=== PATIENT | male | born 1970 | race Caucasian/White ===

== ENCOUNTER 2018-01-21 07:55 | Emergency (ER) | payer BC, MEDICAID ==
[2018-01-21] MEDS: IPRATROPIUM/ALBUTEROL (0.5MG/3MG) NEB INH ONE (08:05)
--- NOTE | 2018-01-21 08:08 | Emergency Department Record ---
History of Present Illness - General Chief complaint: Hives Stated complaint: HIVES Time Seen by Provider: 01/21/18 08:00 Source: Patient Mode of Arrival: Ambulatory Limitations: No limitations - History of Present Illness Initial comments: 47 yo male presents with hives and mild wheezing. He was stung by an [place] Dagger M[employer] Caterpiller. He has developed hives and wheezing. He is a smoker with underlying asthma. He did not use his inhaler yet. He was seen at a [facility] and then referred to [facility] ED. He was not treated with steroids due to a Prednisone allergy. He states he has had "steroid shots" without reaction in the past. He additional reports he has been on Medrol tapering dose packs without reaction in the past 1-2 years. No chest pain. The patient was given 0.3mg of Epinephrine at the and in the ED. No other medications given. MD complaint: Insect bite/sting, Rash -: Days(s) (1) Location: Generalized Severity: Moderate Quality: Other (itching) Consistency: Constant Improves with: None Worsens with: Other (Not on steroids and did not use his inhaler) Context: Witnessed insect bite Associated symptoms: Itching Treatments Prior to Arrival: Other - Related Data Home Medications Medication Instructions Recorded Confirmed Last Taken Aspirin [Aspir-Low] 81 mg PO DAILY 01/21/18 01/21/18 01/21/18 Cyclobenzaprine HCl [Flexeril] 10 mg PO ASDIR PRN 01/21/18 01/21/18 Unknown Diazepam [Valium] 10 mg PO QHS PRN 01/21/18 01/21/18 Unknown Fenofibrate,Micronized 134 mg PO DAILY 01/21/18 01/21/18 01/21/18 [Fenofibrate] Hydrocodone/Acetaminophen [[place] 2 each PO BID 01/21/18 01/21/18 Unknown 10-325 Tablet] Metoprolol Succinate 25 mg PO DAILY 01/21/18 01/21/18 01/21/18 Multivitamin [Daily Multiple 1 each PO DAILY 01/21/18 01/21/18 01/21/18 Vitamin] Bimble-3 Fatty Acids/Fish Oil [Fish 1 each PO DAILY 01/21/18 01/21/18 01/21/18 Oil 1,000 mg Capsule] Omeprazole [Prilosec] 20 mg PO DAILY 01/21/18 01/21/18 01/21/18 Vardenafil HCl [Levitra] 20 mg PO NOW PRN 01/21/18 01/21/18 Unknown Previous Rx's Medication Instructions Recorded Epinephrine 0.3 mg IJ ONCE PRN #2 auto.injct 01/21/18 Methylprednisolone [Medrol Dose 4 mg PO DAILY #1 tab.ds.pk 01/21/18 Pack] Ranitidine HCl [Zantac] 150 mg PO BID #20 tablet 01/21/18 Allergies Allergy/AdvReac Type Severity Reaction Status Date / Time penicillin V potassium Allergy Unknown PT UNSURE Unverified 01/21/18 08:15 [From PEN-VEE K] OF REACTION levofloxacin [From Levaquin] AdvReac NAUSEA AND Verified 01/21/18 08:15 VOMITING prednisone AdvReac HYPERSENSIT Verified 01/21/18 08:15 IVITY Review of Systems Constitutional: Denies: Chills, Fever, Malaise, Weakness, Weight change Eyes: Denies: Eye discharge ENT: Denies: Congestion, Throat pain Respiratory: Reports: Dyspnea, Wheezes. Denies: Cough Cardiovascular: Denies: Chest pain, Palpitations, Syncope Endocrine: Denies: Fatigue, Polydipsia, Polyuria Gastrointestinal: Denies: Abdominal pain, Diarrhea, Nausea, Vomiting Genitourinary: Denies: Dysuria, Frequency, Hematuria Musculoskeletal: Denies: Arthralgia, Back pain, Myalgia, Neck pain Skin: Reports: Change in color, Rash. Denies: Bruising Neurological: Denies: Headache Psychiatric: Denies: Anxiety Hematological/Lymphatic: Denies: Blood Clots, Easy bleeding, Easy bruising, Swollen glands Physical Exam - General General Appearance: Alert, Oriented x3, Cooperative, No acute distress, Other ( Calm, no obvious facial, lip, tongue swelling, no conversational dyspnea. Appears relaxed) Limitations: No limitations - Head Head exam: Normal inspection - Eye Eye exam: Normal appearance. negative: Conjunctival injection, Periorbital swelling, Scleral icterus - ENT ENT exam: Normal exam, Mucous membranes moist, Normal orophraynx Ear exam: Normal external inspection Nasal Exam: Normal inspection Mouth exam: Normal external inspection Teeth exam: Normal inspection Throat exam: Normal inspection. negative: Tonsillar erythema, Tonsillomegaly, R peritonsillar mass, L peritonsillar mass - Neck Neck exam: Normal inspection, Full ROM. negative: Lymphadenopathy, Tenderness - Respiratory Respiratory exam: Normal lung sounds bilaterally, Wheezes (mild), Other (Calm relaxed breathing, no conversational dyspnea). negative: Accessory muscle use, Decreased breath sounds, Prolonged expiratory, Respiratory distress, Rhonchi - Cardiovascular Cardiovascular Exam: Regular rate, Normal rhythm, Normal heart sounds - GI/Abdominal GI/Abdominal exam: Soft. negative: Tenderness - Rectal Rectal exam: Deferred - exam: Deferred - Extremities Extremities exam: negative: Normal inspection - Back Back exam: Denies: Normal inspection - Neurological Neurological exam: Alert, Oriented X3 - Psychiatric Psychiatric exam: Normal affect, Normal mood - Skin Skin exam: Dry, Intact, Rash, Urticaria, Warm. negative: Normal color Distribution of rash: Abdomen, Back, Chest, RUE, LUE Description of rash: Urticarial Course - Reevaluation(s) Reevaluation #1: The patient is very clear that he is not allergic to steroid shots. He has had IM solumedrol in the last 1-2 years for poison gladys without any reaction. His Predinsone reaction was a purple rash on the abdomen not anaphylaxis. We discussed the risks and benefits of IM/IV solumedrol. He states he requested in at [facility] but was denied. He is requesting it in the ED this morning as well and states NO prior reaction. 01/21/18 08:24 His breathing remains calm after the Duoneb. The minimal wheeze he had is resolved. 01/21/18 08:27 01/21/18 09:08 The patient is resting comfortably. Tolerated the Solumedrol without immediate reaction. 01/21/18 09:30 BMP reviewed. Glucose 200 01/21/18 10:05 The patient was informed of the BS He is not a diabetic He was informed steroids will increase his glucose temporarily He will need to eat low carbohydrate food, recheck sugars with his PCP. 01/21/18 10:15 I KIESHA Flores his PCP We discussed his hives, glucose and need for close follow up to recheck the sugars. 04/2017 his A1C was 5.7 01/21/18 10:45 We discussed the results of the tests and questions were answered at the time of discharge. The patient is doing well and is comfortable with DC. DC vitals were reviewed. Normal range. His hives were greatly improved. Lungs are clear We discussed at length reasons to immediately return to the ED as well as close follow up. The patient will call the PCP for close follow up of this ED visit to review this visit and the tests performed including follow up glucose Medical Decision Making - Lab Data Result diagrams: 01/21/18 08:35 01/21/18 08:35 Disposition Disposition: Discharge Clinical Impression: Hives Toxic effect of venom of caterpillars, unintentional Qualifiers: Encounter type: initial encounter Qualified Code(s): T63.431A - Toxic effect of venom of caterpillars, accidental (unintentional), initial encounter Disposition: Home, Self-Care Condition: (1) Good Instructions: Urticaria (ED) Additional Instructions: Use your albuterol 2 puffs every 4-6 hours Take 25-50mg Benadryl every 4-6 hours if the hives continue Take the Medrol Dose pack as directed for the next 7 days Return if worse, fever, short of breath or any new concerns You will need to eat low carbohydrate foods as your blood sugar was elevated today You will need to recheck your sugars with your doctor in the next week Prescriptions: Epinephrine 0.3 mg IJ ONCE PRN #2 auto.injct PRN Reason: Anaphylaxis Methylprednisolone [Medrol Dose Pack] 4 mg PO DAILY #1 tab.ds.pk Ranitidine HCl [Zantac] 150 mg PO BID #20 tablet Forms: Patient Portal Access Time of Disposition: 11:04 Quality - Quality Measures Quality Measures: N/A - Blood Pressure Screening Does Patient Have Any of the Following: No Blood Pressure Classification: Normal BP Reading Systolic Measurement: 110 Diastolic Measurement: 61 Screening for High Blood Pressure: < Normal BP, F/U Not Required > [G8783]
[2018-01-21] MEDS: SODIUM CHLORIDE 0.9% 500 ML IV ONE (08:10)
[2018-01-21] MEDS: DIPHENHYDRAMINE HCL 50 MG/ML VIAL IVP ONE (08:10)
[2018-01-21] MEDS: METHYLPREDNISOLONE PF 125MG/VIAL IVP ONE (08:36)
[2018-01-21] MEDS: RANITIDINE HCL 50 MG in 0.9 % SODIUM CHLORIDE 100ML 100 ML IVPB ONE (08:37)
[2018-01-21 08:49] LABS: HEMOGLOBIN 17.8 gm/dl (14.0-18.0); MEAN PLATELET VOLUME 9.7 fl (7.4-10.4); PLATELET COUNT 342 K/uL (130-400); RED CELL DISTRIBUTION WIDTH 13.9 % (11.5-14.5)
[2018-01-21 08:51] LABS: MEAN CORPUSCULAR HEMOGLOBIN 29.6 pg (27-33)
[2018-01-21 08:57] LABS: PLATELET ESTIMATE NORMAL (NORMAL)
[2018-01-21 09:02] LABS: BLOOD UREA NITROGEN 11 mg/dL (6-20)
[2018-01-21 09:03] LABS: CREATININE 0.8 mg/dL (0.7-1.2); EST GLOMERULAR FILTRATION RATE > 60 mL/min
[2018-01-21 09:05] LABS: GLUCOSE,RANDOM 200 mg/dL (74-109)
== END 2018-01-21 10:50 | disposition home or self-care (01) ==
LOC: ER 07:55
DX: T63.431A Toxic effect of venom of caterpillars, accidental (unintentional), initial encounter (principal); L50.0 Allergic urticaria; R06.2 Wheezing; F17.210 Nicotine dependence, cigarettes, uncomplicated
CPT/HCPCS: 80048; 85027; 94640; 96365; 96375; 99284; J1200; J2780; J2930

== ENCOUNTER 2018-10-04 10:52 | Day surgery (SDC) | payer BC, MEDICAID ==
[2018-10-04] MEDS ORDERED: MIDAZOLAM HCL 2MG/2ML VIAL IV ONE (10:53)
[2018-10-04] MEDS ORDERED: PROPOFOL 10 MG/ML VIAL IV ONE (10:53)
[2018-10-04] MEDS ORDERED: LIDOCAINE 2% MDV (20MG/ML) 20ML VIAL IV ONE (10:53)
--- NOTE | 2018-10-05 08:40 | Operative Note ---
OPERATION: COLONOSCOPY to the cecum with cold snare polypectomy x1. INDICATION: History of adenomatous polyps in the past. The patient returns at this time for surveillance. He denies current GI issues other than occasional blood with wiping and straining to pass his stool. ANESTHESIA: Intravenous sedation was administered by the department of anesthesiology and included Diprivan titrated to effect. PROCEDURE: Following informed consent from this alert individual including a discussion of the risks and benefits of the procedure and an opportunity for the patient to ask questions, the patient was in the left lateral decubitus position. A digital rectal examination was performed. No abnormalities were noted. Following this, the Olympus [id number] video colonoscope was inserted into the rectum without resistance. The rectal mucosa had a normal appearance with normal folds and distensibility. The colonoscope was advanced up through the bowel to the level of the cecum without much difficulty. Throughout the bowel the mucosa appeared normal, the folds were normal, and the bowel was fairly well distensible. The cecum was defined by noting the appendiceal orifice and ileocecal valve. The colon preparation was good. From the base of the cecum, the colonoscope was then withdrawn. In the descending colon, there was a sessile 5 mm polyp which was removed with cold snare polypectomy and suctioned through the colonoscope into a collection trap. No other changes were noted until the rectum was reached. Retroflexion in the rectum did reveal small internal hemorrhoids. The endoscope was straightened and removed. The patient tolerated the procedure well and was returned to the recovery area in stable condition. IMPRESSION: 1. Small internal hemorrhoids. 2. A 5 mm descending colon polyp removed with cold snare polypectomy. RECOMMENDATIONS: Further recommendations will be forthcoming pending results of pathology obtained today. Followup will be with Dr. Oden as well. ADDENDUM: The patient did complain of some periumbilical pain at the site of a hernia and did want to talk to surgeon about getting his hemorrhoids removed. For this reason, I took the liberty of referring him to Dr. Loc Dacosta. As always, thank you for allowing me to participate in the care of your patient. CC: SHONNA ODEN D.O. Loc Dacosta, DO [facility]
== END 2018-10-04 12:35 | disposition home or self-care (01) ==
LOC: HOP 10:52
PROVIDERS: ATTEND Internal Medicine Gastroenterology
DX: Z12.11 Encounter for screening for malignant neoplasm of colon (principal); Z86.010 Personal history of colon polyps; K51.40 Inflammatory polyps of colon without complications; K42.9 Umbilical hernia without obstruction or gangrene; K64.8 Other hemorrhoids; I10 Essential (primary) hypertension; E78.00 Pure hypercholesterolemia, unspecified; E11.9 Type 2 diabetes mellitus without complications; K21.9 Gastro-esophageal reflux disease without esophagitis

== ENCOUNTER 2019-01-27 17:55 | Emergency (ER) | payer BC, OTHER ==
--- NOTE | 2019-01-27 18:09 | Emergency Department Record ---
History of Present Illness - General Chief complaint: Rash Stated complaint: RASH Time Seen by Provider: 01/27/19 18:02 Source: Patient, Family Mode of Arrival: Ambulatory Limitations: No limitations - History of Present Illness Initial comments: 48 yo male presents with a rash for about 4 days. The [place] He is unaware of any exposures. He had a similar hive like rash one year ago after exposure to the [place] Dagger Moth Caterpillar. His rash is on the face, chest, back. No cough or shortness of breath. No fevers. No bruising or blisters. The rash is a hive/uritcarial like rash. No fever. No other changes in his health. No nausea, vomiting or diarrhea. No blisters or bruising. MD complaint: Rash -: Days(s) Location: Face, Neck, Chest, Back Severity: Moderate Quality: Other Consistency: Constant Improves with: None Worsens with: None Context: Other (Travel to [place] Associated symptoms: Denies other symptoms Treatments Prior to Arrival: Benadryl, Corticosteroid - Related Data Home Medications Medication Instructions Recorded Confirmed Last Taken Metformin HCl [Glucophage] 1,000 mg PO DAILY 01/27/19 01/27/19 01/27/19 Previous Rx's Medication Instructions Recorded Epinephrine 0.3 mg IJ ONCE PRN #2 auto.injct 01/21/18 Methylprednisolone [Medrol Dose 4 mg PO DAILY #1 tab.ds.pk 01/27/19 Pack] Allergies Allergy/AdvReac Type Severity Reaction Status Date / Time penicillin V potassium Allergy Unknown PT UNSURE Verified 01/27/19 18:01 [From PEN-VEE K] OF REACTION levofloxacin [From Levaquin] AdvReac NAUSEA AND Verified 01/27/19 18:01 VOMITING Review of Systems Constitutional: Denies: Chills, Fever, Malaise, Weakness Eyes: Denies: Eye discharge ENT: Denies: Congestion, Throat pain Respiratory: Denies: Cough, Dyspnea, Hemoptysis, Stridor, Wheezes Cardiovascular: Denies: Chest pain, Palpitations, Syncope Endocrine: Denies: Fatigue, Polydipsia, Polyuria Gastrointestinal: Denies: Abdominal pain, Diarrhea, Nausea, Vomiting Genitourinary: Denies: Dysuria, Frequency, Hematuria Musculoskeletal: Denies: Arthralgia, Back pain, Myalgia Skin: Reports: As per HPI, Change in color, Rash. Denies: Bruising, Pruritus Neurological: Denies: Headache, Numbness, Weakness Psychiatric: Denies: Anxiety Hematological/Lymphatic: Denies: Easy bleeding, Easy bruising Past Medical History - SOCIAL HISTORY Smoking Status: Never smoker - RESPIRATORY Hx Respiratory Disorders: Yes Hx Asthma: Yes Hx Bronchitis: Yes Hx Pneumonia: Yes - CARDIOVASCULAR Hx Cardio Disorders: Yes Hx Hypertension: Yes Comment:: murmur - NEURO Hx Neuro Disorders: No - GI Hx GI Disorders: Yes Hx Hiatal Hernia: Yes Hx of Polyps: Yes - Hx Genitourinary Disorders: No - ENDOCRINE Hx Endocrine Disorders: No - MUSCULOSKELETAL Hx Musculoskeletal Disorders: Yes - PSYCH Hx Psych Problems: No - HEMATOLOGY/ONCOLOGY Hx Hematology/Oncology Disorders: No Physical Exam - General General Appearance: Alert, Oriented x3, Cooperative, No acute distress Limitations: No limitations - Head Head exam: Atraumatic, Normal inspection - Eye Eye exam: Normal appearance. negative: Conjunctival injection - ENT ENT exam: Normal exam Ear exam: Normal external inspection Nasal Exam: Normal inspection Mouth exam: Normal external inspection, Tongue normal, Other (Normal inspection). negative: Drooling, Muffled voice, Tongue elevation, Trismus Teeth exam: Normal inspection Throat exam: Normal inspection. negative: Tonsillar erythema, Tonsillomegaly, Tonsillar exudate, R peritonsillar mass, L peritonsillar mass - Neck Neck exam: Full ROM - Respiratory Respiratory exam: Normal lung sounds bilaterally. negative: Prolonged expiratory, Respiratory distress, Rhonchi, Stridor, Wheezes - Cardiovascular Cardiovascular Exam: Regular rate, Normal rhythm, Normal heart sounds Peripheral Pulses: 2+: Radial (R), Radial (L) - GI/Abdominal GI/Abdominal exam: Soft. negative: Tenderness - Rectal Rectal exam: Deferred - exam: Deferred - Extremities Extremities exam: negative: Normal inspection (rash) - Back Back exam: Denies: Normal inspection - Neurological Neurological exam: Alert, Oriented X3 - Psychiatric Psychiatric exam: Normal affect, Normal mood. negative: Agitated, Anxious - Skin Skin exam: Erythema Course - Reevaluation(s) Reevaluation #1: 01/27/19 18:57 We discussed that the cause of his hive like rash is unclear. He states last year he improved quicker with the Medrol dose pack He will be switched to the dose pack We discussed close follow up with his PCP as well as reasons to return to the ED as well I recommended he discuss with his PCP to refer to an business development professional as well Disposition Disposition: Discharge Clinical Impression: Rash, Acute urticaria Disposition: Home, Self-Care Condition: (1) Good Instructions: Urticaria (ED) Additional Instructions: Call your doctor tomorrow for close follow up Return or be seen if worse, short of breath, or any changes to the rash Take the prescriptions as directed Discuss with your doctor a referral to an small engine specialist since this has happen in the past as well Prescriptions: Methylprednisolone [Medrol Dose Pack] 4 mg PO DAILY #1 tab.ds.pk Forms: Patient Portal Access Time of Disposition: 18:59 Quality - Quality Measures Quality Measures: N/A - Blood Pressure Screening Does Patient Have Any of the Following: No Blood Pressure Classification: Pre-Hypertensive BP Reading Systolic Measurement: 121 Diastolic Measurement: 80 Screening for High Blood Pressure: < Pre-Hypertensive BP, F/U Documented > [G8950] Pre-Hypertensive Follow-up Interventions: Referral to alternative/primary care provider.
[2019-01-27] MEDS ORDERED: DIPHENHYDRAMINE HCL 50 MG/ML VIAL IVP ONE (18:10)
[2019-01-27] MEDS ORDERED: METHYLPREDNISOLONE PF 125MG/VIAL IM ONE (18:10)
== END 2019-01-27 19:09 | disposition home or self-care (01) ==
LOC: ER 17:55
DX: L50.9 Urticaria, unspecified (principal); I10 Essential (primary) hypertension
CPT/HCPCS: 96372; 96374; 99284; J1200; J2930